=== PATIENT | female | born 2000 | race Caucasian/White ===

== ENCOUNTER 2025-02-09 21:06 | Emergency (ER) | payer BC, SELFPAY ==
[2025-02-09 21:10] VITALS: BP 161/96; PULSE 93; RESP 18; TEMP 36.7; O2SAT 98; BMI 52.2
[2025-02-09 22:17] LABS: Mucous, Urine 0 SEEN /hpf (<or=2+)
[2025-02-09 22:20] LABS: Color, Urine Yellow (Yellow); Glucose, Dipstick Normal (Normal); Internal QC Validated? YES +Cl - CLEAR BKGD; Ketone-Dipstick Negative (Negative); Leukocyte Esterase-Dipstick 25 /ul (Negative); Nitrite-Dipstick Negative (Negative); Occult Blood-Urine 150 /ul (Negative); Protein-Dipstick 30 mg/dl (Negative); Record Kit Lot#,Urine Preg 962302; Specific Gravity, Urine 1.015 (1.002-1.030); Urine Bilirubin Dipstick Negative (Negative)
--- OUTSIDE RECORDS SUMMARY | 2025-02-09 22:22 | XMS RPT_ITS | CCD ---
Author Organization [facility] Care Team Providers Care Atomizer Assembler Name Role Phone Donna Aguayo Unavailable [phone] Unavailable Unavailable DONNA AGUAYO Primary Care Unavailab DONNA Sanchez Attending Unavailab DONNA Sanchez Primary Care Unavailab DONNA Sanchez Attending Unavailab DONNA Sanchez Primary Care Unavailab Billy Walters Attending Unavailable Donna Aguayo Primary Care Unavailable Medications Completed/Discontinued Medications Medication Drug Class(es) Dates Sig (Normalized) Sig (Original) ergocalciferol 1.25 mg oral capsule (2 sources) Provitamin D2 Compound Start: 10-13-2021 take 1 capsule by mouth every week Vitamin D (Ergocalciferol) 1.25 MG (63822 UT) Oral Capsule TAKE 1 CAPSULE WEEKLY. Quantity: 13 Refills: 1 Ordered: 13-Oct-2021 Donna Aguayo MD Start : 13-Oct-2021 Active escitalopram 10 mg oral tablet (4 sources) Serotonin Reuptake Inhibitor Start: 09-30-2021 take 1 tablet by mouth once daily Escitalopram Oxalate 10 MG Oral Tablet TAKE 1 TABLET DAILY. Quantity: 30 Refills: 1 Ordered: 30-Sep-2021 Donna Aguayo MD Start : 30-Sep-2021 Active vitamin b12 2.5 mg sublingual tablet (2 sources) Vitamin B12 Start: 10-13-2021 take 1 tablet under the tongue once daily Vitamin B-12 2500 MCG Sublingual Tablet Sublingual 1 TAB SUBLINGUAL DAILY Quantity: 30 Refills: 5 Ordered: 13-Oct-2021 Donna Aguayo MD Start : 13-Oct-2021 Active Problems Problem Classification Problem Date Documented Da te Episodic/Chronic Anxiety disorders (4 sources) Mixed anxiety and depressive disorder; Translations: [Dysthymic disorder] Chronic Nausea and vomiting (2 sources) Nausea; Translations: [Nausea] Onset: 07-06-2023 Episodic Nutritional deficiencies (4 sources) Vitamin D deficiency; Translations: [Unspecified vitamin D deficiency] Onset: 07-06-2023 Chronic Nutritional deficiencies (4 sources) Cobalamin deficiency; Translations: [Other B-complex deficiencies] Onset: 07-06-2023 Episodic Other gastrointestinal disorders (2 sources) Abdominal distension (gaseous); Translations: [Abdominal distension (gaseous)] Onset: 07-06-2023 Episodic Other nutritional; endocrine; and metabolic disorders (4 sources) Severe obesity; Translations: [Morbid obesity] Chronic Other nutritional; endocrine; and metabolic disorders (2 sources) Morbid (severe) obesity due to excess calories; Translations: [Morbid (severe) obesity due to excess calories (Multi)] Onset: 01-22-2024 Chronic Other nutritional; endocrine; and metabolic disorders (2 sources) Body mass index (BMI) 50.0-59.9, adult; Translations: [Body mass index (BMI) 50.0-59.9, adult (Multi)] Onset: 01-22-2024 Chronic Results Test Name Value Interpretation Reference Range Facility CBC W Auto Differential pane l (Bld)on 07-06-2023 Basophils (Bld) [#/Vol] 0.03 x10*3/uL Normal 0.00-0.10 [facility] Comment on above: Performed By: #### 5 7021-8 #### RANJIT VIRAMONTES ([id number]) [facility] ([facility]) [address] [place] [address] 88541 Basophils/100 WBC (Bld) 0.5 % Normal 0.0-2.0 [facility] Comment on above: Performed By: #### 5 7021-8 #### RANJIT VIRAMONTES ([id number]) [facility] ([facility]) [address] [place] [address] 51097 Eosinophils (Bld) [#/Vol] 0.04 x10*3/uL Normal 0.00-0.70 [facility] Comment on above: Performed By: ###Germaine 5 7021-8 #### RANJIT VIRAMONTES ([id number]) [facility] ([facility]) [address] [place] [address] 64729 Eosinophils/100 WBC (Bld) 0.7 % Normal 0.0-6.0 [facility] Comment on above: Performed By: #### 5 7021-8 #### RANJIT VIRAMONTES ([id number]) [facility] ([facility]) [address] [place] [address] 22113 Erythrocyte distribution width (RBC) [Ratio] 13.1 % Normal 11.5-14.5 [facility] Comment on above: Performed By: #### 5 7021-8 #### RANJIT VIRAMONTES ([id number]) [facility] ([facility]) [address] [place] [address] 53523 Hematocrit (Bld) [Volume fraction] 44.9 % Normal 36.0-52.0 [facility] Comment on above: Performed By: #### 5 7021-8 #### RANJIT VIRAMONTES ([id number]) [facility] ([facility]) [address] [place] [address] 11919 Hemoglobin (Bld) [Mass/Vol] 14.8 g/dL Normal 12.0-17.5 [facility] Comment on above: Performed By: #### 5 7021-8 #### RANJIT VIRAMONTES ([id number]) [facility] ([facility]) [address] [place] [address] 91313 Immature granulocytes (Bld) [#/Vol] 0.01 x10*3/uL Normal 0.00-0.70 [facility] Comment on above: Performed By: #### 5 7021-8 #### RANJIT VIRAMONTES ([id number]) [facility] ([facility]) [address] [place] [address] 68506 Immature granulocytes/100 WBC (Bld) 0.2 % Normal 0.0-0.9 [facility] Comment on above: Result Comment: Vicki ture Granulocyte Count (IG) includes promyelocytes, myelocytes and metamyelocytes but does not include bands. Percent differential counts (%) should be interpreted in the context of the absolute cell counts (cells/UL). Performed By: #### 5 7021-8 #### RANJIT VIRAMONTES ([id number]) [facility] ([facility]) [address] [place] [address] 46315 Lymphocytes (Bld) [#/Vol] 1.69 x10*3/uL Normal 1.20-4.80 [facility] Comment on above: Performed By: #### 5 7021-8 #### RANJIT VIRAMONTES ([id number]) [facility] ([facility]) [address] [place] [address] 19679 Lymphocytes/100 WBC (Bld) 28.0 % Normal 13.0-44.0 [facility] Comment on above: Performed By: #### 5 7021-8 #### RANJIT VIRAMONTES ([id number]) [facility] ([facility]) [address] [place] [address] 44103 MCH (RBC) [Entitic mass] 28.8 pg Normal 26.0-34.0 [facility] Comment on above: Performed By: #### 5 7021-8 #### RANJIT VIRAMONTES ([id number]) [facility] ([facility]) [address] [place] [address] 81516 MCHC (RBC) [Mass/Vol] 33.0 g/dL Normal 32.0-36.0 [facility] Comment on above: Performed By: #### 5 7021-8 #### RANJIT VIRAMONTES ([id number]) [facility] ([facility]) [address] [place] [address] 03849 MCV (RBC) [Entitic vol] 88 fL Normal 80-100 [facility] Comment on above: Performed By: #### 5 7021-8 #### RANJIT VIRAMONTES ([id number]) [facility] ([facility]) [address] [place] [address] 36779 Monocytes (Bld) [#/Vol] 0.57 x10*3/uL Normal 0.10-1.00 [facility] Comment on above: Performed By: #### 5 7021-8 #### RANJIT VIRAMONTES ([id number]) [facility] ([facility]) [address] [place] [address] 58540 Monocytes/100 WBC (Bld) 9.5 % Normal 2.0-10.0 [facility] Comment on above: Performed By: #### 5 7021-8 #### RANJIT VIRAMONTES ([id number]) [facility] ([facility]) [address] [place] [address] 31222 Neutrophils (Bld) [#/Vol] 3.69 x10*3/uL Normal 1.20-7.70 [facility] Comment on above: Result Comment: Perc ent differential counts (%) should be interpreted in the context of the absolute cell counts (cells/uL). Performed By: #### 5 7021-8 #### RANJIT VIRAMONTES ([id number]) [facility] ([facility]) [address] [place] [address] 66487 Neutrophils/100 WBC (Bld) 61.1 % Normal 40.0-80.0 [facility] Comment on above: Performed By: #### 5 7021-8 #### RANJIT VIRAMONTES ([id number]) [facility] ([facility]) [address] [place] [address] 94265 Nucleated RBC/100 WBC (Bld) [Ratio] 0.0 /100 WBCs Normal 0.0-0.0 [facility] Comment on above: Performed By: #### 5 7021-8 #### RANJIT VIRAMONTES ([id number]) [facility] ([facility]) [address] [place] [address] 20986 Platelets (Bld) [#/Vol] 326 x10*3/uL Normal 150-450 [facility] Comment on above: Performed By: #### 5 7021-8 #### RANJIT VIRAMONTES ([id number]) [facility] ([facility]) [address] [place] [address] 26550 RBC (Bld) [#/Vol] 5.13 x10*6/uL Normal 4.00-5.90 [facility] Comment on above: Performed By: #### 5 7021-8 #### RANJIT VIRAMONTES ([id number]) [facility] ([facility]) [address] [place] [address] 60703 WBC (Bld) [#/Vol] 6.0 x10*3/uL Normal 4.4-11.3 [facility] Comment on above: Performed By: #### 5 7021-8 #### RANJIT VIRAMONTES ([id number]) [facility] ([facility]) [address] [place] [address] Choriogonadotropin.beta subu niton 07-06-2023 HCG.beta subunit Qn m[IU]/mL Normal <5 [facility] Comment on above: Order Comment: Total HCG measurement is performed using the Lew SemEquip Access Immunoassay which detects intact HCG and free beta HCG subunit. This test is not indicated for use as a tumor marker. HCG testing is performed using a different test methodology at [facility] than other [facility]. Direct result comparison should only be made within the same method. Performed By: #### 2 1198-7 #### RANJIT VIRAMONTES ([id number]) [facility] ([facility]) [address] [place] [address] Cobalaminson 07-06-2023 Cobalamin (Vitamin B12) [Mass/Vol] 206 pg/mL Low 211-911 [facility] Comment on above: Performed By: #### 2 132-9 #### RANJIT VIRAMONTES ([id number]) [facility] ([facility]) [address] [place] [address] Comprehensive metabolic 2000 panelon 07-06-2023 Albumin BCP dye [Mass/Vol] 4.5 g/dL Normal 3.4-5.0 [facility] Comment on above: Performed By: #### 2 4323-8 #### RANJIT VIRAMONTES ([id number]) [facility] ([facility]) [address] [place] [address] ALP [Catalytic activity/Vol] 80 U/L Normal 33-120 [facility] Comment on above: Performed By: #### 2 4323-8 #### RANJIT VIRAMONTES ([id number]) [facility] ([facility]) [address] [place] [address] ALT With P-5'-P [Catalytic activity/Vol] 46 U/L Normal 7-52 [facility] Comment on above: Result Comment: Evelin ents treated with Sulfasalazine may generate falsely decreased results for ALT. Performed By: #### 2 4323-8 #### RANJIT VIRAMONTES ([id number]) [facility] ([facility]) [address] [place] [address] 08166 Anion gap [Moles/Vol] 9 mmol/L Low 10-20 [facility] Comment on above: Performed By: #### 2 4323-8 #### RANJIT VIRAMONTES ([id number]) [facility] ([facility]) [address] [place] [address] 06555 AST With P-5'-P [Catalytic activity/Vol] 30 U/L Normal 9-39 [facility] Comment on above: Performed By: #### 2 4323-8 #### RANJIT VIRAMONTES ([id number]) [facility] ([facility]) [address] [place] [address] 29084 Bilirubin [Mass/Vol] 0.5 mg/dL Normal 0.0-1.2 [facility] Comment on above: Performed By: #### 2 4323-8 #### RANJIT VIRAMONTES ([id number]) [facility] ([facility]) [address] [place] [address] 54410 Calcium [Mass/Vol] 9.3 mg/dL Normal 8.6-10.3 [facility] Comment on above: Performed By: #### 2 4323-8 #### RANJIT VIRAMONTES ([id number]) [facility] ([facility]) [address] [place] [address] 64064 Chloride [Moles/Vol] 105 mmol/L Normal 98-107 [facility] Comment on above: Performed By: #### 2 4323-8 #### RANJIT VIRAMONTES ([id number]) [facility] ([facility]) [address] [place] [address] 49367 CO2 [Moles/Vol] 29 mmol/L Normal 21-32 [facility] Comment on above: Performed By: #### 2 4323-8 #### RANJIT VIRAMONTES ([id number]) [facility] ([facility]) [address] [place] [address] 92313 Creatinine [Mass/Vol] 0.63 mg/dL Normal 0.50-1.30 [facility] Comment on above: Performed By: #### 2 4323-8 #### RANJIT VIRAMONTES ([id number]) [facility] ([facility]) [address] [place] [address] 93970 GFR/1.73 sq M.predicted MDRD (S/P/Bld) [Vol rate/Area] mL/min/{1.73_m2} Normal >60 [facility] Comment on above: Result Comment: Calc ulations of estimated GFR are performed using the 2020 CKD-EPI Study Refit equation without the race variable for the IDMS-Traceable creatinine methods. https://jasn.asnjournals.org/content/early/ASN.68547242 88 Performed By: #### 2 432-8 #### RANJIT VIRAMONTES ([id number]) [facility] ([facility]) [address] [place] [address] 93846 Glucose [Mass/Vol] 88 mg/dL Normal 74-99 [facility] Comment on above: Performed By: #### 2 4322-8 #### RANJIT VIRAMONTES ([id number]) [facility] ([facility]) [address] [place] [address] 87757 Potassium [Moles/Vol] 4.2 mmol/L Normal 3.5-5.3 [facility] Comment on above: Performed By: #### 2 4322-8 #### RANJIT VIRAMONTES ([id number]) [facility] ([facility]) [address] [place] [address] 78832 Protein [Mass/Vol] 6.6 g/dL Normal 6.4-8.2 [facility] Comment on above: Performed By: #### 2 4323-8 #### RANJIT VIRAMONTES ([id number]) [facility] ([facility]) [address] [place] [address] 35455 Sodium [Moles/Vol] 139 mmol/L Normal 136-145 [facility] Comment on above: Performed By: #### 2 4323-8 #### RANJIT VIRAMONTES ([id number]) [facility] ([facility]) [address] [place] [address] Urea nitrogen [Mass/Vol] 10 mg/dL Normal 6-23 [facility] Comment on above: Performed By: #### 2 4323-8 #### RANJIT VIRAMONTES ([id number]) [facility] ([facility]) [facility] [place] [address] TSH WITH REFLEX TO FREE T4 I F ABNORMALon 07-06-2023 TSH Qn 2.21 m[IU]/L Normal 0.44-3.98 [facility] Comment on above: Order Comment: TSH t esting is performed using different testing methodology at [facility] than at other [facility]. Direct result comparisons should only be made within the same method. Performed By: #### T HYDS #### RANJIT VIRAMONTES ([id number]) [facility] ([facility]) [address] [place] [address] 04506 Office Visiton 11-23-2021 Follow-up visit Diagnoses/Problems Depression with anxiety (300.4) (F41.8) Orders Depression with anxiety Renew: Escitalopram Oxalate 20 MG Oral Tablet; TAKE 1 TABLET DAILY Provider Impressions F/u in 2-4 weeks, sooner if needed. Chief Complaint 1 month f/u, requesting to increase Lexapro History of Present IllnessHere for f/u depression/anxiety. She is doing ok, states that it could be better and is interested in increasing the lexapro. She is going to counselling as well. Review of Systems Constitutional: Negative except as documented in history of present illness. Respiratory: Negative except as documented in history of present illness. Cardiovascular: Negative except as documented in history of present illness. Active Problems Class 3 severe obesity with body mass index (BMI) of 45.0 to 49.9 in adult (278.01,V85.42) (E66.01,Z68.42) Depression with anxiety (300.4) (F41.8) Vitamin B12 deficiency (266.2) (E53.8) Vitamin D deficiency (268.9) (E55.9) Surgical History History of [place] tooth extraction Social History Caffeine use (V49.89) (Z78.9) Never a smoker No alcohol use No illicit drug use Allergies No Known Drug Allergies Recorded By: Ingris Jauregui; 09/30/2021 1:53:12 PM Current Meds Medication NameInstruction Escitalopram Oxalate 10 MG Oral TabletTAKE 1 TABLET DAILY. Vitamin B-12 2500 MCG Sublingual Tablet Sublingual1 TAB SUBLINGUAL DAILY Vitamin D (Ergocalciferol) 1.25 MG (07225 UT) Oral CapsuleTAKE 1 CAPSULE WEEKLY. Vitals Vital Signs Recorded: 23Nov2021 09:28AM Heart Rate78 Uzexdacu846 Zxtpzfvyo87 Height5 ft Wqwvtv782 lb BMI Zjqrpoeukn14.29 kg/m2 BSA Calculated2.01 Tobacco Useb) No O2 Xjhwnjvxkf52 Physical Exam General: Alert and oriented, No acute distress, very tearful. Psychiatric: Cooperative, Appropriate mood AND affect. Signatures Electronically signed by : Donna Aguayo MD; Nov 23 2021 10:18AM EST (Author) Normal [employer] Office Visiton 10-13-2021 Follow-up visit Diagnoses/Problems Depression with anxiety (300.4) (F41.8) Vitamin D deficiency (268.9) (E55.9) Vitamin B12 deficiency (266.2) (E53.8) Orders Vitamin B12 deficiency Start: Vitamin B-12 2500 MCG Sublingual Tablet Sublingual; 1 TAB SUBLINGUAL DAILY Vitamin D deficiency Start: Vitamin D (Ergocalciferol) 1.25 MG (90346 UT) Oral Capsule; TAKE 1 CAPSULE WEEKLY Provider Impressions F/u in 1-2 months, sooner if needed. Chief Complaint Pt presents for 2 wk medication f/u; depressive episodes are less often; and anxiety has decreased; no problems with medication. History of Present IllnessHere for f/u depression/anxiety. She states that she thinks that she is doing a little better. No significant side effect from the medication. Review of Systems Constitutional: Negative except as documented in history of present illness. Respiratory: Negative except as documented in history of present illness. Cardiovascular: Negative except as documented in history of present illness. Active Problems Class 3 severe obesity with body mass index (BMI) of 45.0 to 49.9 in adult (278.01,V85.42) (E66.01,Z68.42) Depression with anxiety (300.4) (F41.8) Surgical History History of [place] tooth extraction Social History Caffeine use (V49.89) (Z78.9) Never a smoker No alcohol use No illicit drug use Allergies No Known Drug Allergies Recorded By: Ingris Jauregui; 09/30/2021 1:53:12 PM Current Meds Medication NameInstruction Escitalopram Oxalate 10 MG Oral TabletTAKE 1 TABLET DAILY. Vitals Vital Signs Recorded: 13Oct2021 03:01PM Heart Rate61 Qzrusiia500, RUE Exmubmmgo79, RUE Height5 ft Gltngw431 lb 5 oz BMI Qdrdbrtlvh04.96 kg/m2 BSA Calculated2 Tobacco Useb) No Fall Screeninga) No falls within the last year O2 Ezbmdovhvl02 Physical Exam General: Alert and oriented, No acute distress, very tearful. Respiratory: Lungs are clear to auscultation, Respirations are non-labored, Breath sounds are equal. Cardiovascular: Normal rate, Regular rhythm, No murmur. Integumentary: Warm, Dry. Neurologic: Alert, Oriented, No focal deficits. Psychiatric: Cooperative, Appropriate mood AND affect. Signatures Electronically signed by : Donna Aguayo MD; Oct 17 2021 9:01PM EST (Author) Normal [employer] Tobacco Screening.on Fall risk assessment a) No falls within the last year -[facility] Work Phone: Tobacco use status [facility] b) No -[facility] Work Phone: CBC AND DIFFERENTIALon 10-01 Basophils (Bld) [#/Vol] 0.00 10*3/uL Normal 0.00 - 0.10 [facility] Comment on above: Performed By: #### C BCDF #### [address] [address] Basophils/100 WBC (Bld) 0.7 % Normal 0.0 - 2.0 [facility] Comment on above: Performed By: #### C BCDF #### [address] [address] Eosinophils (Bld) [#/Vol] 0.00 10*3/uL Normal 0.00 - 0.70 [facility] Comment on above: Performed By: #### C BCDF #### [address] [place] [address] Eosinophils/100 WBC (Bld) 0.7 % Normal 0.0 - 6.0 [facility] Comment on above: Performed By: #### C BCDF #### [address] [address] Erythrocyte distribution width (RBC) [Ratio] 12.8 % Normal 11.5 - 14.5 [facility] Comment on above: Performed By: #### C BCDF #### [address] [address] Hematocrit (Bld) [Volume fraction] 41.6 % Normal 36.0 - 46.0 [facility] Comment on above: Performed By: #### C BCDF #### [address] [address] Hemoglobin (Bld) [Mass/Vol] 14.1 g/dL Normal 12.0 - 16.0 [facility] Comment on above: Performed By: #### C BCDF #### [address] [address] Lymphocytes (Bld) [#/Vol] 2.20 10*3/uL Normal 1.20 - 4.80 [facility] Comment on above: Performed By: #### C BCDF #### [address] [address] Lymphocytes/100 WBC (Bld) 34.4 % Normal 13.0 - 44.0 [facility] Comment on above: Performed By: #### C BCDF #### [address] [address] MCHC (RBC) [Mass/Vol] 34.0 g/dL Normal 32.0 - 36.0 [facility] Comment on above: Performed By: #### C BCDF #### [address] [address] MCV (RBC) [Entitic vol] 86 fL Normal 80 - 100 [facility] Comment on above: Performed By: #### C BCDF #### [address] [address] Monocytes (Bld) [#/Vol] 0.50 10*3/uL Normal 0.10 - 1.00 [facility] Comment on above: Performed By: #### C BCDF #### [address] [address] Monocytes/100 WBC (Bld) 7.4 % Normal 2.0 - 10.0 [facility] Comment on above: Performed By: #### C BCDF #### [address] [address] Neutrophils (Bld) [#/Vol] 3.60 10*3/uL Normal 1.20 - 7.70 [facility] Comment on above: Result Comment: Perc ent differential counts (%) should be interpreted in the context of the absolute cell counts (cells/L). Performed By: #### C BCDF #### [address] [address] Neutrophils/100 WBC (Bld) 56.8 % Normal 40.0 - 80.0 [facility] Comment on above: Performed By: #### C BCDF #### [address] [address] NUCLEATED RBC 0.1 /100 WBC Normal [facility] Comment on above: Performed By: #### C BCDF #### [address] [address] Platelets (Bld) [#/Vol] 357 10*3/uL Normal 150 - 450 [facility] Comment on above: Performed By: #### C BCDF #### [address] [address] RBC 4.83 x10E12/L Normal 4.00 - 5.20 [facility] Comment on above: Performed By: #### C BCDF #### [address] [address] WBC (Bld) [#/Vol] 6.4 10*3/uL Normal 4.4 - 11.3 [facility], [place] Comment on above: Performed By: #### C BCDF #### [address] [address] COMPREHENSIVE PANELon 04-23- 2022 Albumin [Mass/Vol] 4.3 g/dL Normal 3.4 - 5.0 [facility], [place] Comment on above: Performed By: #### C MP #### [address] [address] ALP [Catalytic activity/Vol] 78 U/L Normal 33 - 110 [facility] Comment on above: Performed By: #### C MP #### [address] [address] ALT [Catalytic activity/Vol] 26 U/L Normal 7 - 45 [facility] Comment on above: Result Comment: Evelin ents treated with Sulfasalazine may generate falsely decreased results for ALT. Performed By: #### C MP #### [address] [address] Anion gap [Moles/Vol] 9 mmol/L Low 10 - 20 [facility] Comment on above: Performed By: #### C MP #### [address] [address] AST [Catalytic activity/Vol] 18 U/L Normal 9 - 39 [facility] Comment on above: Performed By: #### C MP #### [address] [address] Bilirubin [Mass/Vol] 0.8 mg/dL Normal 0.0 - 1.2 [facility] Comment on above: Performed By: #### C MP #### [address] [address] Calcium [Mass/Vol] 9.2 mg/dL Normal 8.6 - 10.3 [facility], [place] Comment on above: Performed By: #### C MP #### [address] [address] Chloride [Moles/Vol] 107 mmol/L Normal 98 - 107 [facility] Comment on above: Performed By: #### C MP #### [address] [address] Creatinine [Mass/Vol] 0.76 mg/dL Normal 0.50 - 1.05 [facility] Comment on above: Performed By: #### C MP #### [address] [address] eGFR FEMALE >90 Normal >90 [facility] Comment on above: Result Comment: CALC ULATIONS OF ESTIMATED GFR ARE PERFORMED USING THE 2020 CKD-EPI STUDY REFIT EQUATION WITHOUT THE RACE VARIABLE FOR THE IDMS-TRACEABLE CREATININE METHODS. https://jasn.asnjournals.org/content//ASN.79094778 88 Performed By: #### C MP #### [address] [address] Glucose [Mass/Vol] 82 mg/dL Normal 74 - 99 [facility], [place] Comment on above: Performed By: #### C MP #### [address] [address] HCO3 (Bld) [Moles/Vol] 29 mmol/L Normal 21 - 32 [facility] Comment on above: Performed By: #### C MP #### [address] [address] Potassium [Moles/Vol] 3.9 mmol/L Normal 3.5 - 5.3 [facility] Comment on above: Performed By: #### C MP #### [address] [address] Protein [Mass/Vol] 6.8 g/dL Normal 6.4 - 8.2 [facility], [place] Comment on above: Performed By: #### C MP #### [address] [address] Sodium [Moles/Vol] 141 mmol/L Normal 136 - 145 [facility], [place] Comment on above: Performed By: #### C MP #### [address] [address] Urea nitrogen [Mass/Vol] 13 mg/dL Normal 6 - 23 [facility] Comment on above: Performed By: #### C MP #### [address] [address] Complete Blood Count + Diffe erickson 10-01-2021 Basophils/100 WBC (Bld) 0.7 % 0.0 - 2.0 [facility] 205 DO Work Phone: Erythrocyte distribution width (RBC) [Ratio] 12.8 % See Below [facility] 205 DO Work Phone: Comment on above: Reference Range: 11. 5 - 14.5 Hematocrit (Bld) [Volume fraction] 41.6 % See Below [facility] 205 DO Work Phone: Comment on above: Reference Range: 36. 0 - 46.0 Hemoglobin (Bld) [Mass/Vol] 14.1 g/dL See Below [facility] 205 DO Work Phone: Comment on above: Reference Range: 12. 0 - 16.0 Lymphocytes/100 WBC (Bld) 34.4 % See Below [facility] 205 DO Work Phone: Comment on above: Reference Range: 13. 0 - 44.0 MCHC (RBC) [Mass/Vol] 34.0 g/dL See Below [facility] 205 DO Work Phone: Comment on above: Reference Range: 32. 0 - 36.0 MCV (RBC) [Entitic vol] 86 fL 80 - 100 [facility] DO Work Phone: Monocytes/100 WBC (Bld) 7.4 % 2.0 - 10.0 [facility] 205 DO Work Phone: Neutrophils/100 WBC (Bld) 56.8 % See Below [facility] DO Work Phone: Comment on above: Reference Range: 40. 0 - 80.0 Platelets (Bld) [#/Vol] 357 10*3/uL 150 - 450 [facility] 205 DO Work Phone: RBC (Bld) [#/Vol] 4.83 {x10E12/L} See Below [facility] 205 DO Work Phone: Comment on above: Reference Range: 4.0 0 - 5.20 WBC (Bld) [#/Vol] 6.4 10*3/uL 4.4 - 11.3 [facility] 205 DO Work Phone: Complete Blood Count + Differential 0.00 {x10E9/L} See Below [facility] 205 DO Work Phone: Comment on above: Reference Range: 0.0 0 - 0.10 Reference Range: 0.0 0 - 0.70 Complete Blood Count + Differential 0.50 {x10E9/L} See Below [facility] 205 DO Work Phone: Comment on above: Reference Range: 0.1 0 - 1.00 Complete Blood Count + Differential 2.20 {x10E9/L} See Below [facility] 205 DO Work Phone: Comment on above: Reference Range: 1.2 0 - 4.80 Complete Blood Count + Differential 3.60 {x10E9/L} See Below [facility] 205 DO Work Phone: Comment on above: Reference Range: 1.2 0 - 7.70 Percent differential counts (%) should be interpreted in the context of the absolute cell counts (cells/L). Complete Blood Count + Differential 0.7 % 0.0 - 6.0 [facility] 205 DO Work Phone: Complete Blood Count + Differential 0.1 {/100_WBC} [facility] 205 DO Work Phone: HEMOGLOBIN A1Con 10-01-2021 Glucose [Mass/Vol] 85 mg/dL Normal [facility], [place] Comment on above: Performed By: #### H BA1E #### [address] [address] HbA1c (Bld) [Mass fraction] 4.6 % Normal [facility] Comment on above: Result Comment: Diag nosis of Diabetes-Adults Non-Diabetic: < or = 5.6% Increased risk for developing diabetes: 5.7-6.4% Diagnostic of diabetes: > or = 6.5% . Monitoring of Diabetes Age (y) Therapeutic Goal (%) Adults: >18 <7.0 Pediatrics: 13-18 <7.5 7-12 <8.0 0- 6 7.5-8.5 [employer]. Diabetes Care 33(S1), Jun 2009. Performed By: #### H BA1E #### [address] [address] Hemoglobin A1Con 10-01-2021 Glucose [Mass/Vol] 85 mg/dL [facility] ie RH 205 DO Work Phone: HbA1c (Bld) [Mass fraction] 4.6 % [facility] 205 DO Work Phone: Comment on above: Diagnosis of Diabete s-Adults Non-Diabetic: < or = 5.6% Increased risk for developing diabetes: 5.7-6.4% Diagnostic of diabetes: > or = 6.5%. Monitoring of Diabetes Age (y) Therapeutic Goal (%) Adults: >18 <7.0 Pediatrics: 13-18 <7.5 7-12 <8.0 0- 6 7.5-8.5 [employer]. Diabetes Care 33(S1), Jun 2009. LIPID PANEL (CORONARY RISK 2 )on 10-01-2021 Cholesterol [Mass/Vol] 144 mg/dL Normal 0 - 199 [facility] Comment on above: Result Comment: . AGE DESIRABLE BORDERLINE HIGH HIGH 0-19 Y 0 - 169 170 - 199 >/= 200 20-24 Y 0 - 189 190 - 224 >/= 225 >24 Y 0 - 199 200 - 239 >/= 240 All ranges are based on fasting samples. Specific therapeutic targets will vary based on patient-specific cardiac risk. . Pediatric guidelines reference:Pediatrics 2011, 128(S5). Adult guidelines reference: NCEP ATPIII Guidelines, MABEL 2001, 258:2486-97 . Venipuncture immediately after or during the administration of Metamizole may lead to falsely low results. Testing should be performed immediately prior to Metamizole dosing. Performed By: #### L IPID #### [address] [address] Cholesterol in HDL [Mass/Vol] 34.0 mg/dL Abnormal [facility] Comment on above: Result Comment: . AGE VERY LOW LOW NORMAL HIGH 0-19 Y < 35 < 40 40-45 ---- 20-24 Y ---- < 40 >45 ---- >24 Y ---- < 40 40-60 >60 . Performed By: #### L IPID #### [address] [address] Cholesterol in LDL [Mass/Vol] 84 mg/dL Normal 0 - 109 [facility] Comment on above: Result Comment: . NEAR BORD AGE DESIRABLE OPTIMAL HIGH HIGH VERY HIGH 0-19 Y 0 - 109 --- 110-129 >/= 130 ---- 20-24 Y 0 - 119 --- 120-159 >/= 160 ---- >24 Y 0 - 99 100-129 130-159 160-189 >/=190 . Performed By: #### L IPID #### [address] [address] Cholesterol in VLDL [Mass/Vol] 26 mg/dL Normal 0 - 40 [facility] Comment on above: Performed By: #### L IPID #### [address] [address] Cholesterol.total/C holesterol in HDL [Mass ratio] 4.2 {ratio} Normal [facility] Comment on above: Result Comment: REF VALUES DESIRABLE < 3.4 HIGH RISK > 5.0 Performed By: #### L IPID #### [address] [address] NON-HDL CHOLESTEROL 110 mg/dL Normal 0 - 119 [facility] Comment on above: Result Comment: AGE DESIRABLE BORDERLINE HIGH HIGH VERY HIGH 0-19 Y 0 - 119 120 - 144 >/= 145 >/= 160 20-24 Y 0 - 149 150 - 189 >/= 190 ---- >24 Y 30 MG/DL ABOVE LDL CHOLESTEROL GOAL . Performed By: #### L IPID #### [address] [address] Triglyceride [Mass/Vol] 130 mg/dL Normal 0 - 149 [facility] Comment on above: Result Comment: . AGE DESIRABLE BORDERLINE HIGH HIGH VERY HIGH 0 D-90 D 19 - 174 ---- ---- ---- 91 D- 9 Y 0 - 74 75 - 99 >/= 100 ---- 10-19 Y 0 - 89 90 - 129 >/= 130 ---- 20-24 Y 0 - 114 115 - 149 >/= 150 ---- >24 Y 0 - 149 150 - 199 200- 499 >/= 500 . Venipuncture immediately after or during the administration of Metamizole may lead to falsely low results. Testing should be performed immediately prior to Metamizole dosing. Performed By: #### L IPID #### [address] [address] Laboratory - Chemistry and C hemistry - challengeon 10-01-2021 Albumin BCP dye [Mass/Vol] 4.3 g/dL 3.4 - 5.0 [facility] 205 DO Work Phone: ALP [Catalytic activity/Vol] 78 U/L 33 - 110 [facility] 205 DO Work Phone: ALT With P-5'-P [Catalytic activity/Vol] 26 U/L 7 - 45 [facility] ie [facility] 205 DO Work Phone: Comment on above: Patients treated wit h Sulfasalazine may generate falsely decreased results for ALT. Anion gap [Moles/Vol] 9 mmol/L below low threshold 10 - 20 [facility] 205 DO Work Phone: AST With P-5'-P [Catalytic activity/Vol] 18 U/L 9 - 39 [facility] 205 DO Work Phone: Bilirubin [Mass/Vol] 0.8 mg/dL 0.0 - 1.2 [facility] 205 DO Work Phone: Calcium [Mass/Vol] 9.2 mg/dL 8.6 - 10.3 [facility] 205 DO Work Phone: Chloride [Moles/Vol] 107 mmol/L 98 - 107 [facility] 205 DO Work Phone: CO2 [Moles/Vol] 29 mmol/L 21 - 32 [facility] 205 DO Work Phone: Creatinine [Mass/Vol] 0.76 mg/dL See Below [facility] 205 DO Work Phone: Comment on above: Reference Range: 0.5 0 - 1.05 Glucose [Mass/Vol] 82 mg/dL 74 - 99 [facility] 205 DO Work Phone: Potassium [Moles/Vol] 3.9 mmol/L 3.5 - 5.3 [facility] 205 DO Work Phone: Protein [Mass/Vol] 6.8 g/dL 6.4 - 8.2 [facility] 205 DO Work Phone: Sodium [Moles/Vol] 141 mmol/L 136 - 145 [facility] 205 DO Work Phone: TSH Qn 1.51 m[IU]/L See Below [facility] 205 DO Work Phone: Comment on above: Reference Range: 0.4 4 - 3.98 TSH testing is performed using different testing methodology at [facility] than at other [facility]. Direct result comparisons should only be made within the same method. Urea nitrogen [Mass/Vol] 13 mg/dL 6 - 23 [facility] RH 205 DO Work Phone: Lipid Panelon 10-01-2021 Cholesterol [Mass/Vol] 144 mg/dL 0 - 199 [facility] 205 DO Work Phone: Comment on above: . AGE DESIRABLE BORD ZORAIDA HIGH HIGH 0-19 Y 0 - 169 170 - 199 >/= 200 20-24 Y 0 - 189 190 - 224 >/= 225 >24 Y 0 - 199 200 - 239 >/= 240 All ranges are based on fasting samples. Specific therapeutic targets will vary based on patient-specific cardiac risk.. Pediatric guidelines reference:Pediatrics 2011, 128(S5). Adult guidelines reference: NCEP ATPIII Guidelines, MABEL 2001, 258:2486-97. Venipuncture immediately after or during the administration of Metamizole may lead to falsely low results. Testing should be performed immediately prior to Metamizole dosing. Cholesterol in HDL [Mass/Vol] 34.0 mg/dL Abnormal [facility] 205 DO Work Phone: Comment on above: . AGE VERY LOW LOW N ORMAL HIGH 0-19 Y < 35 < 40 40-45 ---- 20- 24 Y ---- < 40 >45 ---- >24 Y ---- < 40 40-60 >60. Cholesterol in LDL [Mass/Vol] 84 mg/dL 0 - 109 [facility] RH 205 DO Work Phone: Comment on above: . NEAR BORD AGE SAMIA RABLE OPTIMAL HIGH HIGH VERY HIGH 0-19 Y 0 - 109 --- 110-129 >/= 130 ---- 20-24 Y 0 - 119 --- 120-159 >/= 160 ---- >24 Y 0 - 99 100-129 130-159 160-189 >/=190. Cholesterol non HDL [Mass/Vol] 110 mg/dL 0 - 119 [facility] 205 DO Work Phone: Comment on above: AGE DESIRABLE BORDER LINE HIGH HIGH VERY HIGH 0-19 Y 0 - 119 120 - 144 >/= 145 >/= 160 20-24 Y 0 - 149 150 - 189 >/= 190 ---- >24 Y 30 MG/DL ABOVE LDL CHOLESTEROL GOAL. Cholesterol.total/C holesterol in HDL [Mass ratio] 4.2 {ratio} [facility] 205 DO Work Phone: Comment on above: REF VALUESDESIRABLE < 3.4HIGH RISK > 5.0 Triglyceride [Mass/Vol] 130 mg/dL 0 - 149 [facility] 205 DO Work Phone: Comment on above: . AGE DESIRABLE BORD ZORAIDA HIGH HIGH VERY HIGH 0 D-90 D 19 - 174 ---- ---- ----91 D- 9 Y 0 - 74 75 - 99 >/= 100 ---- 10-19 Y 0 - 89 90 - 129 >/= 130 ---- 20-24 Y 0 - 114 115 - 149 >/= 150 ---- >24 Y 0 - 149 150 - 199 200- 499 >/= 500. Venipuncture immediately after or during the administration of Metamizole may lead to falsely low results. Testing should be performed immediately prior to Metamizole dosing. Lipid Panel 26 mg/dL 0 - 40 [facility] 205 DO Work Phone: MAGNESIUMon 10-01-2021 Magnesium [Mass/Vol] 1.94 mg/dL Normal 1.60 - 2.40 [facility] Comment on above: Performed By: #### M G #### [place] [address] Magnesium, Serumon Magnesium [Mass/Vol] 1.94 mg/dL See Below [facility] 205 DO Work Phone: Comment on above: Reference Range: 1.6 0 - 2.40 No Panel Informationon 10-01 >90 >90 [facility] 205 DO Work Phone: Comment on above: CALCULATIONS OF CHEY MATED GFR ARE PERFORMED USING THE 2020 CKD-EPI STUDY REFIT EQUATION WITHOUT THE RACE VARIABLE FOR THE IDMS-TRACEABLE CREATININE METHODS.https://jasn.asnjournals.org/content/early/ASN. 7477632047 TSH WITH REFLEX TO FREE T4 I F ABNORMALon 10-01-2021 TSH Qn 1.51 m[IU]/L Normal 0.44 - 3.98 [facility] Comment on above: Result Comment: TSH testing is performed using different testing methodology at [facility] than at other [facility]. Direct result comparisons should only be made within the same method. Performed By: #### T HYDS #### [address] [address] VITAMIN B12on 10-01-2021 Cobalamin (Vitamin B12) [Mass/Vol] 194 pg/mL Low 211 - 911 [facility] Comment on above: Performed By: #### V TB12 #### [address] [address] VITAMIN D, 25-HYDROXYon 09-10 VITAMIN D, 25-HYDROXY 13 ng/mL Abnormal [facility] Comment on above: Result Comment: . DEFICIENCY: < 20 NG/ML INSUFFICIENCY: 20-29 NG/ML SUFFICIENCY: 30-100 NG/ML THIS ASSAY ACCURATELY QUANTIFIES THE SUM OF VITAMIN D3, 25-HYDROXY AND VIT D2,25-HYDROXY. Performed By: #### V TDOH #### [address] [address] Vitamin B12, Serumon 022 Cobalamin (Vitamin B12) [Mass/Vol] 194 pg/mL below low threshold 211 - 911 [facility] 205 DO Work Phone: Vitamin D 25-Hydroxyon 10-01 25-hydroxyvitamin D3 [Mass/Vol] 13 ng/mL Abnormal [facility] 205 DO Work Phone: Comment on above: .DEFICIENCY: < 20 NG /MLINSUFFICIENCY: 20-29 NG/MLSUFFICIENCY: 30-100 NG/MLTHIS ASSAY ACCURATELY QUANTIFIES THE SUM OFVITAMIN D3, 25-HYDROXY AND VIT D2,25-HYDROXY. Office Visiton 09-30-2021 Follow-up visit Diagnoses/Problems Encounter for preventive health examination (V70.0) (Z00.00) Depression with anxiety (300.4) (F41.8) Class 3 severe obesity with body mass index (BMI) of 45.0 to 49.9 in adult (278.01,V85.42) (E66.01,Z68.42) Orders Depression with anxiety Start: Escitalopram Oxalate 10 MG Oral Tablet (Lexapro); TAKE 1 TABLET DAILY Adult Psychiatry Referral Evaluation and Treatment Evaluate AND Treat Status: Hold For - Scheduling Requested for: 30Sep2021 Depression with anxiety, Health Maintenance Complete Blood Count + Differential; Status:Resulted - Requires Verification; Done: 01Oct2021 09:48AM Comprehensive Metabolic Panel; Status:Resulted - Requires Verification; Done: 01Oct2021 09:48AM Hemoglobin A1C; Status:Resulted - Requires Verification; Done: 01Oct2021 09:48AM Lipid Panel; Status:Resulted - Requires Verification; Done: 01Oct2021 09:48AM Magnesium, Serum; Status:Resulted - Requires Verification; Done: 01Oct2021 09:48AM TSH WITH REFLEX TO FREE T4 IF ABNORMAL; Status:Resulted - Requires Verification; Done: 01Oct2021 09:48AM Vitamin B12, Serum; Status:Resulted - Requires Verification; Done: 01Oct2021 09:48AM Vitamin D 25-Hydroxy; Status:Resulted - Requires Verification; Done: 01Oct2021 09:48AM SocHx: Never a smoker Tobacco Use Screening; Status:Complete; Done: 30Sep2021 Provider Impressions Will check some labs, start medication - advised her to monitor closely for any evidence of richard as she starts, also cautioned about potential worsening of suicidal thoughts and she will let us know or go to ER if any develop. F/u here in 1-2 weeks, sooner if needed. Chief Complaint NPV to establish care, concerned about her mental health, depression and anxiety History of Present IllnessHere to get established. She states that she is struggling with anxiety/depression. She states that she has probably had some anxiety since kindergarten, depression in middle school. Has had thoughts of not wanting to be around, nothing she would act on. She had not been on any medication for depression/anxiety in the past. Struggles with motivation. Has some periods of time where she doesn't sleep, then will have periods where she sleeps a lot. Has had some significant appetite changes. Has been crying quite a bit. She is interested in seeing a therapist/psychiatri st. Review of Systems Constitutional: Negative except as documented in history of present illness. Respiratory: Negative except as documented in history of present illness. Cardiovascular: Negative except as documented in history of present illness. Surgical History History of [place] tooth extraction Social History Caffeine use (V49.89) (Z78.9) Never a smoker No alcohol use No illicit drug use Allergies No Known Drug Allergies Recorded By: Ingris Jauregui; 09/30/2021 1:53:12 PM Vitals Vital Signs Recorded: 30Sep2021 01:51PM Heart Rate92 [id number] Sdhpnihgk35 Height5 ft Ogtjix806 lb BMI Utuqxcguhh19.68 kg/m2 BSA Calculated2.01 Tobacco Useb) No O2 [id number] Physical Exam General: Alert and oriented, No acute distress, very tearful. Respiratory: Lungs are clear to auscultation, Respirations are non-labored, Breath sounds are equal. Cardiovascular: Normal rate, Regular rhythm, No murmur. Integumentary: Warm, Dry. Neurologic: Alert, Oriented, No focal deficits. Psychiatric: Cooperative, Appropriate mood AND affect. Results/Data 6 Signatures Electronically signed by : Donna Aguayo MD; Oct 01 2021 4:32PM EST (Author) Normal [facility] Tobacco Screening.on 022 Tobacco use status [facility]PHS b) No -[facility] 205 DO Work Phone: Provider Note - ED v2on 11- Provider Note - ED v2 Provider Note - ED v2: Chart Review: HISTORY OF PRESENTING ILLNESS SAHIL is a 20 year old Female and was seen by me at 20-Apr-2020 12:20 for a chief complaint of (Preemployment physical). Other complaints include: Patient presents for preemployment physical. Patient denies chronic illnesses or daily medications. Patient denies any prior orthopedic surgery. Patient has no constitutional complaints at this time.. Triage Information: Most recent Vital Sign Value Date PAST MEDICAL HISTORY ATTESTATION: I have reviewed and confirmed nurse's/medic's notes for patient's medications, allergies, medical history, and surgical history ALLERGIES/INTOLERANC ES: No Known Allergies HEALTH HISTORY: No documented data. 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 Respiratory: No shortness of breath, No cough. Cardiovascular: No chest pain. Gastrointestinal: No abdominal pain, No nausea, No vomiting. Genitourinary: No dysuria, No hematuria. Musculoskeletal: No decreased range of motion. Integumentary: No rash. Neurologic: Alert and oriented X4, No numbness, No tingling. All other systems are negative PHYSICAL EXAM CONSTITUTIONAL: Well appearing, well nourished, awake, alert, oriented to person, place, time/situation and in no apparent distress. HENMT: Airway patent, ears with clear tympanic membranes bilaterally. Nasal mucosa clear. Mouth with normal mucosa. Throat has no vesicles, no oropharyngeal exudates and uvula is midline. Face with no lymph node enlargement. EYES: Clear bilaterally, pupils equal, round and reactive to light. CARDIOVASCULAR: Normal rate, regular rhythm. RESPIRATORY: Breath sounds clear and equal bilaterally. MUSCULOSKELETAL: Spine appears normal, range of motion is not limited, no muscle or joint tenderness. NEUROLOGICAL: Alert and oriented, no focal deficits, no motor or sensory deficits. SKIN: Skin normal color for race, warm, dry and intact. No evidence of trauma. MEDICAL DECISION MAKING/ED COURSE MDM/ED COURSE: Exam unremarkable. Cleared for work. CLINICAL IMPRESSION Diagnosis/Annotation : ED Dx Name:Routine physical examination Code:Z00.00 Dispostion: discharged Type: home ATTESTATION CRITICAL CARE TIME Is this a critically ill patient: no Electronic Signatures: Travis Shields (PAC) (Signed 20-Apr-2020 12:26) Authored: HPI, PMH, ROS, PE, MDM/ED Course, Clinical Impression, Attestation, Chart Review, Scores Last Updated: 20-Apr-2020 12:26 by Travis Shields (PAC) [facility] Vital Signs Date Time Vital Sign Value Performing Clinician Faci eulaliay 10-13-2021 15:01-0400 Body height 152.4 cm Donna ReynoldsCl[employer]Stream Work Phone: [facility] Work Phone: 10-13-2021 15:01-0400 Body mass index (BMI) [Ratio] 45.96 kg/m2 Donna ReynoldsCl[employer] Work Phone: [employer] [facility] Work Phone: 10-13-2021 15:01-0400 Body surface area Derived from formula 2 m2 Donna HardyGlobal[employer]erve Work Phone: [employer] [facility] Work Phone: 10-13-2021 15:01-0400 Body weight 106.74 kg Donna Aguayo Work Phone: [employer] [facility] Work Phone: 10-13-2021 15:01-0400 Diastolic blood pressure 78 mm[Hg] Donna [employer] Work Phone: [employer] [facility] Work Phone: 10-13-2021 15:01-0400 Heart rate 61 /min Donna ReynoldsCl[employer] Work Phone: [employer] [facility] Work Phone: 10-13-2021 15:01-0400 SaO2% (BldA) [Mass fraction] 98 % Donna HardyGlobalServe Work Phone: [facility] Work Phone: 10-13-2021 15:01-0400 Systolic blood pressure 124 mm[Hg] Donna Aguayo Work Phone: [facility] Work Phone: 09-30-2021 13:51-0400 Body height 152.4 cm Donna Aguayo Work Phone: [facility] 205 DO Work Phone: 09-30-2021 13:51-0400 Body mass index (BMI) [Ratio] 46.68 kg/m2 Donna Aguayo Work Phone: [facility] 205 DO Work Phone: 09-30-2021 13:51-0400 Body surface area Derived from formula 2.01 m2 Donna Aguayo Work Phone: [facility] 205 DO Work Phone: 09-30-2021 13:51-0400 Body weight 108.41 kg Donna Aguayo Work Phone: [facility] 205 DO Work Phone: 09-30-2021 13:51-0400 Diastolic blood pressure 86 mm[Hg] Donna Aguayo Work Phone: [facility] 205 DO Work Phone: 09-30-2021 13:51-0400 Heart rate 92 /min Donna Aguayo Work Phone: [facility] 205 DO Work Phone: 09-30-2021 13:51-0400 SaO2% (BldA) [Mass fraction] 100 % Donna Aguayo Work Phone: [facility] 205 DO Work Phone: 09-30-2021 13:51-0400 Systolic blood pressure 140 mm[Hg] Donna Aguayo Work Phone: [facility] 205 DO Work Phone: Encounters Encounter Date Encounter Type Care Provider Facility Start: 02-09-2025 ambulatory [facility] Facility:[facility] Start: 01-09-2025 End: 01-09-2025 ambulatory DONNA Carlin [facility] Ambulatory Start: 01-09-2025 End: 01-09-2025 Encounter for general adult medical examination without abnormal findings DONNA Carlin [facility]ulatory Start: 01-22-2024 End: 01-22-2024 ambulatory DONNA Carlin [facility] Ambulatory Start: 07-06-2023 End: 07-07-2023 ambulatory DONNA Carlin [facility] Start: 10-13-2021 Office outpatient vi sit 15 minutes Donna A Gailjase Work Phone: [facility] Work Phone: Start: 10-13-2021 Patient encounter procedure Donna Aguayo Work Phone: [facility] Work Phone: Start: 09-30-2021 Office outpatient ne w 30 minutes Donna Aguayo Work Phone: [facility] 205 DO Work Phone: Start: 09-30-2021 Patient encounter procedure Donna Carlin Antonyramon Work Phone: [facility] 205 DO Work Phone: Procedures Date Procedure Procedure Detail Performing Clinician Start: 07-06-2023 CBC W Auto Different ial panel - Blood DONNA AGUAYO Start: 07-06-2023 Comprehensive metabo lic 2000 panel - Serum or Plasma DONNA AGUAYO Start: 07-06-2023 Cyanocobalamin vitamin b-12 DONNA AGUAYO Start: 07-06-2023 HUMAN CHORIONIC GONADOTROPIN, SERUM QUANTITATIVE DONNA AGUAYO Start: 07-06-2023 TSH WITH REFLEX TO F REE T4 IF ABNORMAL DONNA AGUAYO Extraction of wisdom tooth K shyla Carlin Gailjase Work Phone: Plan of Treatment Date Care Activity Detail Author Start: 11-10-2021 EPV, Provider: Donna Aguayo, Status: Pen, Time: 2:00 PM EPV, Provider: Donna Aguayo, Status: Pen, Time: 2:00 PM [facility] Work Phone: Start: 10-13-2021 FUV, Provider: Donna Aguayo, Status: Pen, Time: 3:00 PM FUV, Provider: Donna Aguayo, Status: Pen, Time: 3:00 PM [facility] 205 DO Work Phone: Payers Date Payer Category Payer Self-pay 2024 Unknown [id number] 2022 Unknown [id number] 2001 Unknown [id number] 2001 Unknown [id number] 2001 Unknown [id number] Unknown ANTHEM Social History Date Type Detail Facility Caffeine use Caffeine use [facility] 205 DO Work Phone: History of Present illness Narrative Note Date & Type Note Facility History of Present illness Narrative Here to get established. She states that she is struggling with anxiety/depression. She states that she has probably had some anxiety since kindergarten, depression in middle school. Has had thoughts of not wanting to be around, nothing she would act on. She had not been on any medication for depression/anxiety in the past. Struggles with motivation. Has some periods of time where she doesn't sleep, then will have periods where she sleeps a lot. Has had some significant appetite changes. Has been crying quite a bit. [facility] 205 DO Work Phone: History of Present illness Narrative Note Date & Type Note Facility History of Present illness Narrative Here to get established. She states that she is struggling with anxiety/depression. She states that she has probably had some anxiety since kindergarten, depression in middle school. Has had thoughts of not wanting to be around, nothing she would act on. She had not been on any medication for depression/anxiety in the past. Struggles with motivation. Has some periods of time where she doesn't sleep, then will have periods where she sleeps a lot. Has had some significant appetite changes. Has been crying quite a bit. She is interested in seeing a therapist/psychiatrist. [facility] 205 DO Work Phone: History of Present illness Narrative Note Date & Type Note Facility History of Present illness Narrative Here for f/u depression/anxiety. She states that she thinks that she is doing a little better. [facility] Work Phone: History of Present illness Narrative Note Date & Type Note Facility History of Present illness Narrative Here for f/u depression/anxiety. She states that she thinks that she is doing a little better. No significant side effect from the medication. [facility] Work Phone: Summary Purpose Family History No Family History Records FoundUnknown Family Member Name Dates Details Family history of diabetes rudi wall: Mother(V18.0, Z83.3) Status:Active Family history of malignant neoplasm: Mother(V16.9, Z80.9) Status:Active Unknown Family Member Name Dates Details Family history of diabetes rudi wall: Mother(V18.0, Z83.3) Status:Active Family history of malignant neoplasm: Mother(V16.9, Z80.9) Status:Active Unknown Family Member Name Dates Details Family history of diabetes m ellitus: Mother(V18.0, Z83.3) Status:Active Family history of malignant neoplasm: Mother(V16.9, Z80.9) Status:Active Unknown Family Member Name Dates Details Family history of diabetes m ellitus: Mother(V18.0, Z83.3) Status:Active Family history of malignant neoplasm: Mother(V16.9, Z80.9) Status:Active Advance Directives No Advanced Directives Records FoundNo Advanced Directives Records FoundNo Advanced Directives Records FoundNo Advanced Directives Records FoundNo Advanced Directives Records FoundNo Advanced Directives Records Found Chief Complaint NPV to establish care, concerned about her mental health, depression and anxiety NPV to establish care, concerned about her mental health, depression and anxiety Pt presents for 2 wk medication f/u; depressive episodes are less often; and anxiety has decreased;no problems with medication.Pt presents for 2 wk medication f/u; depressive episodes are less often; and anxiety has decreased;no problems with medication. Additional Source Comments INFORMATION SOURCE (unrecogn ized section and content) DATE CREATED AUTHOR 04/23/2020 [facility] DATE CREATED AUTHOR AUTHOR'S ORGANIZ ATION 11/24/2021 [employer] DATE CREATED AUTHOR AUTHOR'S ORGANIZ ATION 01/31/2022 [facility] DATE CREATED AUTHOR AUTHOR'S ORGANIZ ATION 07/13/2023 [facility] DATE CREATED AUTHOR AUTHOR'S ORGANIZ ATION 01/11/2025 [facility] DATE CREATED AUTHOR AUTHOR'S ORGANIZ ATION 02/09/2025 [facility] FOR RECORDS PERTAINING TO PATIENTS WHO ARE OR HAVE BEEN ENROLLED IN A CHEMICAL DEPENDENCY/SUBSTANCEABUSE PROGRAM, SOME INFORMATION MAY BE OMITTED. This clinical summary was aggregated from multiple sources. Caution should be exercised in using it in the provision of clinical care. This summary normalizes information from multiple sources, and as a consequence, information in this document may materially change the coding, format and clinical context of patient data. In addition, data may be omitted in some cases. CLINICAL DECISIONS SHOULD BE BASED ON THE PRIMARY CLINICAL RECORDS. [employer] provides no warranty or guarantee of the accuracy or completeness of information in this document.
[2025-02-09 22:25] LABS: Pregnancy, Urine Negative Negative
[2025-02-09 22:31] LABS: Red Blood Cells-Urine 5-10 SEEN /hpf (0-5); Squamous Epithelial Cells - UA 0-5 SEEN /hpf (5-10)
--- NOTE | 2025-02-09 22:57 | EDS_ITS ---
HPI HPI - Female History of Present Illness Chief Complaint: Vag Bleeding Informant: patient and friend Narrative Narrative: Patient is a 24-year-old female who reports no significant past medical history. She states this evening she was having sexual intercourse with her boyfriend and during that she passed a large clot. She states that she does not have a history of bleeding disorder nor does she take blood thinners. She states her menstrual cycle is not due to start for roughly an other 10 to 14 days. She states that there has been no vaginal discharge or dysuria. She states that she has no concern for STD. She states she does not have concern for but is not on any type of control. She reports there has been no further bleeding since the passage of the clot. However as this was an abnormal event for her she presents for evaluation [facility] Medical History no medical history no medical history Home Medications ?Medication ?Instructions ?Recorded ?Last Taken ?Type cephalexin 500 mg capsule 500 mg PO TID 7 days #21 cap s 02/09/25 Unknown Rx Allergy/AdvReac Type Severity Reaction Status Date / Time No Known Allergies Allergy Verified 02/09/25 21:10 Social History Smoking Status: Current every day smoker tobacco type: smokeless tobacco ROS ROS ED Constitutional Constitutional ED: Denies chills or fever(s) ENT ENT ED: Denies sore throat Cardiovascular Cardiovascular: Denies chest pain Respiratory/Chest Respiratory/Chest: Denies cough or dyspnea Gastrointestinal Gastrointestinal: Denies abdominal pain, diarrhea, nausea or vomiting Genitourinary Genitourinary ED: Reports other Details: Positive vaginal bleeding ; Denies dysuria or hematuria Musculoskeletal Musculoskeletal: Reports other Details: Negative back pain Integumentary Denies rash Neurologic Neurologic: Denies headache(s) Hematologic/Lymphatic Hematologic/Lymphatic: Denies easy bleeding or easy bruising EXAM Physical Exam Const Vital Signs: 02/09/25 21:10 02/09/25 22:58 Temperature 98.1 F 98 F Temperature Source Temporal Pulse Rate 93 87 Respiratory Rate 18 18 Blood Pressure 161/96 H 141/96 H Blood Pressure Mean 117 111 Pulse Ox 98 96 Oxygen Delivery Method Room Air Positive well nourished, well developed and obese General Appearance ED: well developed; Negative for pallor Nutritional Appearance: obese HEENT HEENT Narrative: Normocephalic atraumatic Eyes PERRL and EOMs intact bilaterally Neck supple Resp normal respiratory effort and clear to auscultation bilaterally Cardio regular rate and regular rhythm GI normal to inspection, nondistended, normoactive bowel sounds, soft to palpation, non-tender, non-distended and no masses Auscultation: normoactive bowel sounds Palpation: soft Narrative: External genitalia is normal. No vaginal hematoma noted. No active bleeding present Speculum exam reveals no internal vaginal laceration or blood in the vaginal vault. The cervical os is closed there is no active bleeding noted. Back/Spine no CVA tenderness Extremity normal to inspection and full ROM Neuro oriented x3, CN's II-XII intact bilaterally and no sensory deficits noted Sensorium / Orientation: alert Motor Exam: strength 5/5 throughout Psych mental status grossly normal Skin no rashes or lesions noted and no wounds Skin Narrative: Capillary refills less than 3 seconds General Skin Exam: Negative for pallor MDM MDM MDM Narrative Medical decision making narrative: Patient arrived to the ER hypertensive otherwise with stable vitals. She reported passing a clot vaginally during sexual intercourse. Differential diagnosis is for dysfunctional uterine bleeding versus vaginal laceration versus vaginal hematoma versus potential complication. test was negative. Pelvic exam showed no hematoma or laceration or active bleeding. Therefore this time I feel her symptoms are related to potential ruptured ovarian cyst. We do not have ultrasound in the hospital at this time of night but based on the fact have low concern that this is torsion or a complication I do not feel the need for emergent ultrasound. Patient will be discharged home as there is no active bleeding. I will start her on antibiotics based on her urine sample showing changes consistent with potential. I have low concern that the bleeding was secondary to a kidney stone as she does not have any CVA pain. Patient will have an outpatient ultrasound obtained to further assess for potential ovarian cyst but without fever hypotension tachycardia or continued bleeding there is no need for further workup and she is otherwise safe for discharge. History & Record Review Discussion w/independent historian: Patient and Friend Lab Data Attestation: I reviewed the patient's lab results. Labs: Laboratory Results - last 24 hr 02/09/25 22:05 Urine Color Yellow Urine Clarity Clear Urine pH 6.0 Ur Specific [place] 1.015 Urine Protein 30 H Urine Glucose (UA) Normal Urine Ketones Negative Urine Occult Blood 150 H Urine Nitrite Negative Urine Bilirubin Negative Urine Urobilinogen 1 H Ur Leukocyte Esterase 25 H Urine RBC 5-10 SEEN Urine WBC 10-25 SEEN Ur Squamous Epith Cells 0-5 SEEN Urine Bacteria 3+ Urine Mucus 0 SEEN Urine Test Negative Discharge Plan Triage Chief Complaint: Vag Bleeding ED Provider: Billy Valdes Dx/Rx/DC Orders Clinical Impression: Abnormal vaginal bleeding, UTI (urinary tract infection) Instructions: UTIs, ED Dysfunctional Uterine Bleeding Prescriptions: New cephalexin 500 mg capsule 500 mg PO TID 7 Days Qty: 21 0RF Other Ambulatory Orders: Transvaginal Non- (Routine) Facility: [facility] - Location: [facility] Ordered By: Dr. Billy Valdes Primary Care Provider: Donna Aguayo Referrals: Monica Greene MD [Med Staff - Active Staff] - Donna Aguayo MD [Primary Care Provider] - Activity Restrictions/Additional Instructions: Please obtain your outpatient ultrasound to further assess for the cause of your bleeding this evening. However as your exam did not show a laceration or hematoma the blood was most likely from a ruptured ovarian cyst. Follow-up with [facility] for repeat evaluation and return to the ER should you have any further concerns Print Language: Azeri Disposition Disposition: Home, Self Care Discharge Date/Time: 02/09/25 23:09
[2025-02-09 22:58] VITALS: BP 141/96; PULSE 87; RESP 18; TEMP 36.6; O2SAT 96
== END 2025-02-09 23:09 | disposition home or self-care (01) ==
PROVIDERS: Emergency Provider Emergency Medicine; PCP Family Medicine; Visit Provider Emergency Medicine
DX: N93.9 Abnormal uterine and vaginal bleeding, unspecified (principal); N39.0 Urinary tract infection, site not specified; F17.220 Nicotine dependence, chewing tobacco, uncomplicated; E66.9 Obesity, unspecified
CPT/HCPCS: 81001; 81025; 99282

== ENCOUNTER → 2025-02-19 | Outpatient (CLI) | payer BC, SELFPAY ==
--- NOTE | 2025-02-19 09:18 | US_ITS ---
PROCEDURE: TRANSVAGINAL NON- 02/19/2025 REASON FOR EXAM: HEMORRHAGIC OVARIAN CYST Abnormal uterine bleeding. TECHNIQUE: Procedure Code: USTVAG Modality: US Procedure: TRANSVAGINAL NON- COMPARISON: None FINDINGS: LMP: February 11, 2025 Measurements: Uterus: 7.7 cm x 4.1 cm x 3.0 cm with a volume of 49 mL Endometrial Thickness: 9 mm. It is trilaminar. Right Ovary: 4.1 cm x 3.2 cm x 3.2 cm with a volume of 21.4 mL. Left Ovary: 3.3 cm x 3.1 cm x 2.9 cm with a volume of 15.6 mL. Uterus: Normal size, myometrial echotexture, and contour. Nabothian cyst. Endometrium: Unremarkable. Right ovary: Multiple small peripheral follicles. Left ovary: Multiple small peripheral follicles. Other: No large pelvic mass identified. US/Transvaginal Non- IMPRESSION: Possible PCOS Reading Location: [id number]
== END | disposition home or self-care (01) ==
PROVIDERS: PCP Family Medicine; Referring Provider Emergency Medicine; Visit Provider Emergency Medicine
DX: N83.209 Unspecified ovarian cyst, unspecified side (principal); N93.9 Abnormal uterine and vaginal bleeding, unspecified
CPT/HCPCS: 76830